=== PATIENT | female | born 1940 | race Caucasian/White ===

== ENCOUNTER 2017-07-05 11:10 | Inpatient (IN) | payer OTHER ==
[~2017-07-05] VITALS: Ht 160 cm; Wt 81.2 kg
[2017-07-05 12:22] LABS: HEMATOCRIT 38.5 % (36.0-46.0); HEMOGLOBIN 12.6 G/DL (11.9-15.5); MCH 29.3 PG (29.0-34.0); MCHC 32.7 G/DL (30.0-36.0); MCV 89.5 FL (83-99); PLATELET COUNT 310 K/uL (156-360); RBC DIS.WIDTH-CV 13.6 % (11.8-14.6); RBC DIS.WIDTH-SD 44.5 % (39-53); WHITE BLOOD COUNT 11.7 K/uL (4.1-10.2)
[2017-07-05 12:32] LABS: CHLORIDE 97 mEq/L (99-109); SODIUM 136 mEq/L (136-147)
[2017-07-05 12:34] LABS: GLUCOSE 159 mg/dL (70-99)
[2017-07-05 12:38] LABS: CREATININE 0.7 mg/dL (0.6-1.3); GFR ESTIMATE (CALCULATED) > 59 mL/min/
[2017-07-05 12:39] LABS: UREA NITROGEN (BUN) 13 mg/dL (9-23)
[2017-07-05 12:43] LABS: TROP-I INTERPRETATION NEGATIVE; TROPONIN-I < 0.01 ng/mL (0.0-0.30)
[2017-07-05 13:19] LABS: APPEARANCE CLEAR ((CLEAR)); BILIRUBIN NEGATIVE; BLOOD NEGATIVE; COLOR YELLOW ((YELLOW)); GLUCOSE (STRIP) 50; KETONES NEGATIVE; LEUKOCYTES NEGATIVE; NITRITE NEGATIVE; PROTEIN (STRIP) 100; SPECIFIC GRAVITY 1.027 (1.000-1.030); UROBILINOGEN 0.2 MG/DL (0.2-1.0)
[2017-07-05 13:21] LABS: BACTERIA RARE /HPF; EPITHELIAL CELLS NONE SEEN /HPF; MUCUS 1+ /LPF; RED BLOOD CELLS 0-5 /HPF (0-5); UCUL ADDED? NO; WHITE BLOOD CELLS 0-5 /HPF (0-5)
[2017-07-05] MEDS ORDERED: VESICARE10 MG PO (15:06)
[2017-07-05] MEDS ORDERED: SALINE NOSE SPR45 M1 BOTH NARES (15:07)
[2017-07-05] MEDS ORDERED: CYANOCOBALAM1000 MCG PO (15:07)
[2017-07-05] MEDS ORDERED: CALCIUM 600 +1 EAC2 PO (15:07)
[2017-07-05] MEDS ORDERED: COLACE100 MG PO (15:07)
[2017-07-05] MEDS ORDERED: ADULT ASPIRIN R81 MG PO (15:07)
[2017-07-05 21:30] VITALS: BP 148/92
[2017-07-06] VITALS (9 sets, daily range): BP systolic 113–173; BP diastolic 61–98
[2017-07-06 06:03] LABS: BASOPHIL (%) 0.4 % (0-1); BASOPHIL COUNT 0.1 K/uL (0-0.1); EOSINOPHIL (%) 0.2 % (0-5); HEMATOCRIT 36.7 % (36.0-46.0); HEMOGLOBIN 11.5 G/DL (11.9-15.5); IMMATURE GRANULOCYTE (%) 0.4 % (0.0-0.7); LYMPHOCYTE (%) 9.2 % (15-42); LYMPHOCYTE COUNT 1.2 K/uL (1.0-2.8); MCH 28.3 PG (29.0-34.0); MCHC 31.3 G/DL (30.0-36.0); MCV 90.2 FL (83-99); MONOCYTE (%) 5.9 % (3-12); MONOCYTE COUNT 0.8 K/uL (0-0.8); NEUTROPHIL (%) 83.9 % (45-76); NEUTROPHIL COUNT 10.8 K/uL (1.8-6.4); PLATELET COUNT 300 K/uL (156-360); RBC DIS.WIDTH-CV 13.5 % (11.8-14.6); RBC DIS.WIDTH-SD 44.5 % (39-53); RED BLOOD COUNT 4.07 M/uL (3.80-5.20); WHITE BLOOD COUNT 12.9 K/uL (4.1-10.2)
[2017-07-06 06:33] LABS: ALBUMIN 3.3 G/DL (3.2-4.8); ALKALINE PHOSPHATASE 79 IU/L (3-129); ALT (GPT) 12 IU/L (3-49); AST (GOT) 17 IU/L (2-34); CHLORIDE 92 MEQ/L (99-109); CREATININE 0.6 MG/DL (0.6-1.3); GFR ESTIMATE (CALCULATED) > 59 mL/min/; GLUCOSE 163 mg/dL (70-99); HDL CHOLESTEROL 38 MG/DL (Desirable>=50); LDL CHOLESTEROL 117 mg/dL (Desirable<100); NON-HDL CHOLESTEROL 132 mg/dL (Desirable<160); POTASSIUM 4.6 MEQ/L (3.7-5.4); SODIUM 134 MEQ/L (136-147); TOTAL BILIRUBIN 0.4 MG/DL (0.0-1.0); TOTAL CHOLESTEROL 170 mg/dL (Desirable<200); TOTAL PROTEIN 6.5 G/DL (6.4-8.3); TRIGLYCERIDES 73 MG/DL (Normal: <150); UREA NITROGEN (BUN) 16 mg/dL (9-23)
[2017-07-06 11:51] LABS: HEMOGLOBIN A1c (GLYCOHEMOGLOB) 6.2 % (Below 5.7)
[2017-07-06 13:13] LABS: BASE EXCESS 8.8 mEq/L (-3 to +3); BICARBONATE 39.8 mEq/L (22-26); CARBOXY HGB 2.8 % (0-5); METHEMOGLOBIN 3.1 % (0-1.5); PCO2 95 mm Hg (35-45); PO2 224 mm Hg (80-100)
[2017-07-06 13:14] LABS: COMMENTS - BLOOD GASES A+C+; SITE LR; pH 7.23 (7.35-7.45)
[2017-07-06 13:47] LABS: BASOPHIL (%) 0.2 % (0-1); EOSINOPHIL (%) 0.1 % (0-5); IMMATURE GRANULOCYTE (%) 0.5 % (0.0-0.7); LYMPHOCYTE (%) 4.5 % (15-42); LYMPHOCYTE COUNT 0.7 K/uL (1.0-2.8); MCH 29.3 PG (29.0-34.0); MCHC 31.6 G/DL (30.0-36.0); MCV 92.7 FL (83-99); MONOCYTE (%) 4.1 % (3-12); MONOCYTE COUNT 0.6 K/uL (0-0.8); NEUTROPHIL (%) 90.6 % (45-76); NEUTROPHIL COUNT 13.3 K/uL (1.8-6.4); PLATELET COUNT 310 K/uL (156-360); RBC DIS.WIDTH-CV 13.6 % (11.8-14.6); RBC DIS.WIDTH-SD 46.5 % (39-53); WHITE BLOOD COUNT 14.6 K/uL (4.1-10.2)
[2017-07-06 14:10] LABS: CHLORIDE 91 MEQ/L (99-109); CREATININE 0.6 MG/DL (0.6-1.3); GFR ESTIMATE (CALCULATED) > 59 mL/min/; GLUCOSE 233 mg/dL (70-99); POTASSIUM 4.5 MEQ/L (3.7-5.4); SODIUM 132 MEQ/L (136-147); UREA NITROGEN (BUN) 19 mg/dL (9-23)
[2017-07-06 14:14] LABS: TROP-I INTERPRETATION NEGATIVE; TROPONIN-I 0.04 ng/mL (0.0-0.30)
[2017-07-07 04:47] VITALS: BP 141/82
[2017-07-07 07:36] VITALS: BP 138/79
[2017-07-07 07:45] LABS: BASOPHIL (%) 0.2 % (0-1); EOSINOPHIL (%) 0.1 % (0-5); HEMATOCRIT 38.5 % (36.0-46.0); IMMATURE GRANULOCYTE (%) 0.5 % (0.0-0.7); LYMPHOCYTE (%) 5.8 % (15-42); LYMPHOCYTE COUNT 0.8 K/uL (1.0-2.8); MCH 28.4 PG (29.0-34.0); MCHC 31.2 G/DL (30.0-36.0); MONOCYTE (%) 3.4 % (3-12); MONOCYTE COUNT 0.4 K/uL (0-0.8); NEUTROPHIL COUNT 11.6 K/uL (1.8-6.4); PLATELET COUNT 334 K/uL (156-360); RBC DIS.WIDTH-CV 13.4 % (11.8-14.6); RBC DIS.WIDTH-SD 44.7 % (39-53); RED BLOOD COUNT 4.23 M/uL (3.80-5.20); WHITE BLOOD COUNT 12.9 K/uL (4.1-10.2)
[2017-07-07 08:31] LABS: CHLORIDE 89 MEQ/L (99-109); CREATININE 0.6 MG/DL (0.6-1.3); GFR ESTIMATE (CALCULATED) > 59 mL/min/; GLUCOSE 187 mg/dL (70-99); POTASSIUM 4.4 MEQ/L (3.7-5.4); SODIUM 136 MEQ/L (136-147); UREA NITROGEN (BUN) 19 mg/dL (9-23)
[2017-07-07 09:00] LABS: THYROTROPIN (TSH) 1.1 MIU/L (0.4-5.5)
[2017-07-07 17:30] VITALS: BP 135/78
[2017-07-07 23:30] VITALS: BP 154/74
[2017-07-08 08:00] VITALS: BP 173/91
[2017-07-08 23:05] VITALS: BP 182/96
[2017-07-09] VITALS (9 sets, daily range): BP systolic 110–177; BP diastolic 34–93
[2017-07-10 06:41] LABS: BASOPHIL (%) 0.1 % (0-1); EOSINOPHIL (%) 0 % (0-5); HEMATOCRIT 39.5 % (36.0-46.0); HEMOGLOBIN 12.6 G/DL (11.9-15.5); IMMATURE GRANULOCYTE (%) 0.6 % (0.0-0.7); LYMPHOCYTE (%) 4.9 % (15-42); LYMPHOCYTE COUNT 0.7 K/uL (1.0-2.8); MCH 28.9 PG (29.0-34.0); MCHC 31.9 G/DL (30.0-36.0); MCV 90.6 FL (83-99); MONOCYTE (%) 4.7 % (3-12); MONOCYTE COUNT 0.7 K/uL (0-0.8); NEUTROPHIL (%) 89.7 % (45-76); NEUTROPHIL COUNT 12.7 K/uL (1.8-6.4); PLATELET COUNT 367 K/uL (156-360); RBC DIS.WIDTH-CV 13.2 % (11.8-14.6); RBC DIS.WIDTH-SD 43.3 % (39-53); RED BLOOD COUNT 4.36 M/uL (3.80-5.20); WHITE BLOOD COUNT 14.2 K/uL (4.1-10.2)
[2017-07-10 07:05] VITALS: BP 195/88
[2017-07-10 07:37] LABS: CHLORIDE 81 MEQ/L (99-109); CREATININE 0.5 MG/DL (0.6-1.3); GFR ESTIMATE (CALCULATED) > 59 mL/min/; GLUCOSE 209 mg/dL (70-99); POTASSIUM 4.8 MEQ/L (3.7-5.4); SODIUM 134 MEQ/L (136-147); UREA NITROGEN (BUN) 20 mg/dL (9-23)
[2017-07-10 07:50] LABS: CARBON DIOXIDE (BICARBONATE) > 40.0 MEQ/L (20-31)
[2017-07-10 11:16] VITALS: BP 194/74
[2017-07-10] MEDS ORDERED: LEVOFLOXACIN500 MG PO (14:37)
[2017-07-10] MEDS ORDERED: ALBUTEROL2.5 MG/0.5 AEROSOL (14:37)
[2017-07-10] MEDS ORDERED: XARELTO20 MG PO (14:38)
[2017-07-10] MEDS ORDERED: LISINOPRIL20 MG PO (14:38)
[2017-07-10 15:15] VITALS: BP 192/91
== END 2017-07-10 16:46 | DRG 193 ==
LOC: EME 11:10 → EDOF 14:15 → 2EAST 14:15 → ENRESERV 14:33 → 2EAST 20:58
PROVIDERS: Emergency Medicine; Family Medicine; Internal Medicine
DX: J18.1 Lobar pneumonia, unspecified organism (principal); J96.02 Acute respiratory failure with hypercapnia; J96.01 Acute respiratory failure with hypoxia; I48.91 Unspecified atrial fibrillation; I10 Essential (primary) hypertension; G30.9 Alzheimer's disease, unspecified; F02.80 Dementia in other diseases classified elsewhere, unspecified severity, without behavioral disturbance, psychotic disturbance, mood disturbance, and anxiety; E11.9 Type 2 diabetes mellitus without complications; E78.5 Hyperlipidemia, unspecified; N39.41 Urge incontinence; M81.0 Age-related osteoporosis without current pathological fracture; E66.9 Obesity, unspecified; Z68.31 Body mass index [BMI] 31.0-31.9, adult; F32.9 Major depressive disorder, single episode, unspecified; Z66 Do not resuscitate; Z79.82 Long term (current) use of aspirin; Z87.891 Personal history of nicotine dependence
CPT/HCPCS: 36600; 70551; 71045; 71260; 80048; 80048 91; 80053; 80061; 81003; 82803; 82948; 83036; 83605; 84439; 84443; 84484; 85025; 85025 91; 85027; 87040; 93005; 94640; 94640 76; 94760; 94799; 99281; 99285; J0456; J0696; J1940; J2543; J7050